=== PATIENT | female | born 1960 | race Caucasian/White ===

== ENCOUNTER 2020-04-26 09:57 | Emergency (ER) | payer OTHER ==
[~2020-04-26] VITALS: Ht 172.7 cm; Wt 76.2 kg
[~2020-04-26 09:57] MED LIST: CLARITIN10 MG; FLEXERIL PO; NORCO 5-325 TA1 EACH PO; ZESTORETIC 20-1 EAC3
[2020-04-26] MEDS ORDERED: HYDROCODON-ACE1 EAC7 PO (14:11)
[2020-04-26] MEDS ORDERED: MELOXICAM15 MG PO (14:11)
[2020-04-26 14:58] VITALS: BP 127/79
== END 2020-04-26 14:56 | disposition home or self-care (01) ==
LOC: M.ERS 09:57
DX: S42.295A Other nondisplaced fracture of upper end of left humerus, initial encounter for closed fracture (principal); S42.455A Nondisplaced fracture of lateral condyle of left humerus, initial encounter for closed fracture; I10 Essential (primary) hypertension; W18.39XA Other fall on same level, initial encounter; Y93.89 Activity, other specified; Y92.89 Other specified places as the place of occurrence of the external cause; Y99.8 Other external cause status

== ENCOUNTER → 2020-07-09 | Outpatient (CLI) | payer OTHER ==
[~2020-07-09] MED LIST changes: +HYDROCODON-ACE1 EAC7 PO; +MELOXICAM15 MG PO
== END ==
LOC: M.CT 13:00
PROVIDERS: ATTEND Nurse Practitioner Family
DX: Z13.6 Encounter for screening for cardiovascular disorders (principal)